=== PATIENT | female | born 1985 | race African-American/Black ===

== ENCOUNTER 2019-10-20 02:16 | Inpatient (IN) | payer MEDICAID ==
[~2019-10-20] VITALS: Ht 154.9 cm; Wt 62.6 kg
[2019-10-20] MEDS ORDERED: DEXT 5%/LR + PITOCIN 20UNITS/L 1,000 ML IV SCH ×2 (04:59→14:42)
[2019-10-20] MEDS ORDERED: METHYLERGONOVINE MALEATE 0.2 MG/ML IM PRN (05:00)
[2019-10-20] MEDS ORDERED: LIDOCAINE HCL 1% 20ML VIAL (Pyxis) INJ INFIL SCH (05:00)
[2019-10-20] MEDS ORDERED: NALOXONE HCL 0.4 MG/ML 1ML VIAL IM PRN (05:00)
[2019-10-20] MEDS ORDERED: BUTORPHANOL TARTRATE 2 MG/ML VIAL IM PRN (05:00)
[2019-10-20] MEDS ORDERED: PENICILLIN G POTASSIUM 5 MMU in DEXT 5% WATER 100 ML IV SCH (05:30)
[2019-10-20 05:40] LABS: BASOPHILS % 0.4 % (0.0-2.0); EOSINOPHILS % 0.3 % (0.0-5.0); HEMATOCRIT. 36.8 % (36.0-48.0); HEMOGLOBIN. 12.1 g/dL (12.0-16.0); LYMPHOCYTES % 15.6 % (20.0-50.0); MEAN CORPUSCULAR HEMOGLOBIN 30.1 pg (28.0-32.0); MEAN CORPUSCULAR VOLUME 91.7 fL (81.0-99.0); MEAN PLATELET VOLUME 10.4 fl (7.4-10.4); MONOCYTES % 6.2 % (2.0-8.0); NEUTROPHILS % 77.5 % (40.0-76.0); PLATELET 179 x1000/uL (130-400); RED BLOOD CELL COUNT 4.01 mill/uL (4.2-5.4); RED CELL DISTRIBUTION WIDTH 13.9 % (11.6-14.6)
[2019-10-20 05:49] LABS: PARTIAL THROMBOPLASTIN TIME 30.6 sec (23.4-31.0); PROTHROMBIN TIME 10.3 sec (9.6-11.0)
[2019-10-20] MEDS ORDERED: PENICILLIN G POTASSIUM 5 MMU in DEXT 5% WATER 100 ML IV NR (06:00)
[2019-10-20 06:17] LABS: HEPATITIS B SURFACE ANTIGEN NEGATIVE
[2019-10-20 06:41] LABS: CLARITY URINE TURBID (CLEAR); COLOR URINE YELLOW (YELLOW); KETONES URINE NEGATIVE (NEGATIVE); LEUKOCYTE ESTERASE URINE 3+ (NEGATIVE); NITRITE URINE NEGATIVE (NEGATIVE); OCCULT BLOOD URINE 3+ (NEGATIVE); PROTEIN URINE 2+ (NEGATIVE); SPECIFIC GRAVITY URINE 1.013 (1.005-1.030); UROBILINOGEN URINE 0.2 E.U./dL (0.2-1.0)
[2019-10-20] MEDS: LACTATED RINGERS 1,000 ML IV SCH ×2 (06:51→10:23)
[2019-10-20] MEDS ORDERED: ROPIVACAINE HCL/PF EPIDURAL 200 ML EPI SCH (07:30)
[2019-10-20 07:32] LABS: *BARBITURATES SCREEN URINE NEGATIVE (NEGATIVE); *COCAINE SCREEN URINE NEGATIVE (NEGATIVE)
[2019-10-20 07:33] LABS: *AMPHETAMINES SCREEN URINE NEGATIVE (NEGATIVE); *BENZODIAZEPINES SCREEN URINE NEGATIVE (NEGATIVE); CANNABINOID URINE SCREEN NEGATIVE (NEGATIVE); METHADONE URINE SCREEN NEGATIVE (NEGATIVE); OPIATES URINE SCREEN NEGATIVE (NEGATIVE); PHENCYCLIDINE URINE SCREEN NEGATIVE (NEGATIVE)
[2019-10-20] MEDS ORDERED: LIDOCAINE HCL 2%/EPINEPHRINE 1:100,000 20 ML VIAL INFIL ONE (09:59)
[2019-10-20] MEDS ORDERED: PENICILLIN G POTASSIUM 2.5 MMU in DEXTROSE 5% WATER 50 ML IV SCH (10:00)
[2019-10-20] MEDS ORDERED: IBUPROFEN 800MG TABLET PO PRN (14:45)
[2019-10-20] MEDS ORDERED: DIPHENHYDRAMINE 25MG CAPSULE PO PRN (14:45)
[2019-10-20] MEDS ORDERED: BENZOCAINE/LANOLIN/ALOE VERA SPRAY TOP PRN (14:45)
[2019-10-20] MEDS ORDERED: HEMORRHOIDAL SUPP PR PRN (14:45)
[2019-10-20] MEDS ORDERED: OXYCODONE HCL/ACETAMINOPHEN 5/325MG TABLET PO PRN (14:45)
[2019-10-20] MEDS ORDERED: LANOLIN OINT 7GM TUBE TOP PRN (14:45)
[2019-10-20] MEDS ORDERED: IBUPROFEN 400MG TABLET PO PRN ×2 (14:45→21:00)
[2019-10-20] MEDS ORDERED: GLYCERIN/WITCH HAZEL LEAF MEDICATED PAD TOP PRN (14:45)
[2019-10-20] MEDS ORDERED: BISACODYL 10MG SUPP PR PRN (14:45)
[2019-10-20 17:00] VITALS: BP 103/52
[2019-10-20] MEDS ORDERED: SIMETHICONE 80MG TABLET CHEW PO SCH (17:00)
[2019-10-20 18:00] VITALS: BP 121/70
[2019-10-20 19:30] VITALS: BP 99/52
[2019-10-20] MEDS ORDERED: DOCUSATE SODIUM 100MG CAPSULE PO SCH (21:00)
[2019-10-21 04:00] VITALS: BP 98/50
[2019-10-21] MEDS ORDERED: FERR325T23 PO (06:55)
[2019-10-21] MEDS ORDERED: IBUP-2030 PO (06:55)
[2019-10-21 07:07] LABS: BASOPHILS % 0.5 % (0.0-2.0); EOSINOPHILS % 0.4 % (0.0-5.0); HEMATOCRIT. 33.9 % (36.0-48.0); MEAN CORPUSCULAR HEMOGLOBIN 29.6 pg (28.0-32.0); MEAN CORPUSCULAR VOLUME 90.9 fL (81.0-99.0); MEAN PLATELET VOLUME 9.6 fl (7.4-10.4); MONOCYTES % 6.7 % (2.0-8.0); NEUTROPHILS % 74.4 % (40.0-76.0); PLATELET 154 x1000/uL (130-400); RED BLOOD CELL COUNT 3.73 mill/uL (4.2-5.4)
[2019-10-21] MEDS ORDERED: FERROUS SULFATE 325MG TABLET PO SCH (07:30)
[2019-10-21] MEDS ORDERED: MEDROXYPROGESTERONE ACETATE 150MG/ML VIAL IM SCH (08:00)
[2019-10-21 08:30] VITALS: BP 127/62
[2019-10-21] MEDS ORDERED: PRENATAL VIT/FE FUMARATE/FA TABLET PO SCH (09:00)
[2019-10-21 16:52] VITALS: BP 100/56
== END 2019-10-21 19:40 | disposition home or self-care (01) | DRG 560 ==
LOC: INTOOBSV 02:16 → 8 EST LDRP 02:16 → OBSVTOIN 02:16 → 8EST 17:15
PROVIDERS: ADMIT Specialist; ATTEND Specialist
PROC: 10E0XZZ Delivery of Products of Conception, External Approach (ICD-10-PCS; principal; 2019-10-20)
PROC: 0W8NXZZ Division of Female Perineum, External Approach (ICD-10-PCS; 2019-10-20)
PROC: 3E0R3BZ Introduction of Anesthetic Agent into Spinal Canal, Percutaneous Approach (ICD-10-PCS; 2019-10-20)
DX: O69.81X0 Labor and delivery complicated by cord around neck, without compression, not applicable or unspecified (principal); O77.0 Labor and delivery complicated by meconium in amniotic fluid; Z37.0 Single live birth; Z79.899 Other long term (current) drug therapy; Z3A.39 39 weeks gestation of pregnancy
CPT/HCPCS: 36415; 80305; 81003; 85025; 86592; 86703; 86762; 86850; 86900; 87340; 99281; J0595; J1050; J2540; J2590; J2795; J3490; J7060